=== PATIENT | male | born 1990 | race Two or more races ===

== ENCOUNTER 2018-11-03 18:21 | Emergency (ER) | payer OTHER ==
[2018-11-03] MEDS ORDERED: Sodium Chloride 0.9% 1,000 ML IV ONE ×2 (18:27→19:37)
--- NOTE | 2018-11-03 19:36 | EDM.PDOC ---
ED HPI GENERAL MEDICAL PROBLEM - General Chief Complaint: Genitourinary Problem Stated Complaint: KIDNEY PROBLEMS Time Seen by Provider: 11/03/18 18:39 Source of Information: Reports: Patient, Family (), Provider (Dr. Hart) , RN Notes Reviewed History Limitations: Reports: No Limitations - History of Present Illness INITIAL COMMENTS - FREE TEXT/NARRATIVE: I was contacted by Dr. Hart at 17:46. He was seeing the patient for lower extremity pain. The patient apparently had an intense lower extremity workout, including leg presses, squats, and hamstring curls, this past 10/30/2018. The patient tells me that he had ordinary post-workout pain on Tuesday, but that he had significantly elevated pain, particularly of the distal quadriceps, Tuesday night, 10/31/2018. At the same time, his urine turned very dark. He saw Dr. Hart about it today, although the patient tells me that he has been drinking a lot of fluid, and that his urine has since lightened up a great deal. Dr. Hart checked a CBC, CMP, CPK, and urinalysis. The patient's WBC count is elevated at 14.1, but the CBC is otherwise normal. His CMP was grossly unremarkable, including a BUN/Cr of 13/1.16. The CPK returned elevated at 9999, consistent with rhabdomyolysis (rhabdomyolysis is defined by a CPK of greater than 1500). I do not have the urinalysis results, but I was told by Dr. Hart that it was unremarkable. Dr. Hart wanted the patient to be admitted for treatment with IV fluid. No prior similar symptoms. The patient's PCP is Dr. Narvaez. Bilateral Lower Leg Pain Score (Numeric/FACES): 8 - Related Data Allergies Allergy/AdvReac Type Severity Reaction Status Date / Time No Known Allergies Allergy Verified 02/22/18 06:52 Home Meds: Home Meds buPROPion HCl [Bupropion Xl] 450 mg PO DAILY 11/03/18 [History] hydrOXYzine pamoate [Hydroxyzine Pamoate] 25 mg PO BEDTIME PRN 11/03/18 [History ] Past Medical History Respiratory History: Reports: Asthma (as a child) Psychiatric History: Reports: Depression, Other (See Below) (Insomnia) - Past Surgical History HEENT Surgical History: Reports: Adenoidectomy, Myringotomy w Tube(s) (bilateral ), Oral Surgery (wisdom teeth extraction), Tonsillectomy Musculoskeletal Surgical History: Reports: Arthroscopic Knee (right x 4, left x 1) Social & Family History - Tobacco Use Smoking Status *Q: Never Smoker Tobacco Use Within Last Twelve Months: Cigars (on occasion) - Alcohol Use Alcohol Use History: Yes Date/Time of Last Drink Comment: None since 2009 - Recreational Drug Use Recreational Drug Use: Yes Drug Use in Last 12 Months: No Recreational Drug Type: Reports: Cocaine (last snorted 2009), Ecstasy (last took 2009), Marijuana/Hashish (last smoked 2009), Psilocybin (Mushrooms) (last took 2009), Vicodin (last took 2009), Xanax (last took 2009) - Living Situation & Occupation Living situation: Reports: , with Spouse, with Family (1 son) 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 ED EXAM, GENERAL - Physical Exam Exam: See Below Exam Limited By: No Limitations General Appearance: Alert, WD/WN, No Apparent Distress Eye Exam: Bilateral Eye: EOMI, Normal Inspection Ears: Normal External Exam, Hearing Grossly Normal Nose: Normal Inspection Throat/Mouth: Normal Inspection, Normal Lips, Normal Voice, No Airway Compromise Head: Atraumatic, Normocephalic Neck: Normal Inspection, Full Range of Motion Respiratory/Chest: No Respiratory Distress, Lungs Clear, Normal Breath Sounds, No Accessory Muscle Use Cardiovascular: Normal Peripheral Pulses, Regular Rate, Rhythm, No Edema, No Gallop, No JVD, No Murmur, No Rub GI/Abdominal: Normal Bowel Sounds, Soft, Non-Tender, No Organomegaly, No Distention, No Abnormal Bruit, No Mass (Male) Exam: Deferred Rectal (Males) Exam: Deferred Back Exam: Normal Inspection, Full Range of Motion, NT Extremities: Normal Range of Motion, No Pedal Edema, Normal Capillary Refill, Other (No visible abnormality to either of the patient's distal thighs, such as swelling, erythema, ecchymosis, or abrasion. Patient reports tenderness, primarily over the distal quadriceps muscles and quadriceps tendons, bilaterally. Neurovascular status of both lower extremities is intact) Neurological: Alert, Oriented, Normal Cognition, No Motor/Sensory Deficits Psychiatric: Normal Affect Skin Exam: Warm, Dry, Intact, Normal Color, No Rash Course - Vital Signs Last Recorded V/S: Last Vital Signs Temp 36.3 C 11/03/18 18:30 Pulse 100 11/03/18 18:30 Resp 20 11/03/18 18:30 BP 143/100 H 11/03/18 18:30 Pulse Ox 95 11/03/18 18:30 - Orders/Labs/Meds Meds: Medications Discontinued Medications Generic Name Dose Route Start Last Admin Trade Name Jarrett PRN Reason Stop Dose Admin Sodium Chloride 1,000 mls @ 999 mls/hr 11/03/18 18:27 11/03/18 18:34 Normal Saline IV 11/03/18 19:27 999 mls/hr ONETIME ONE Administration Sodium Chloride 1,000 mls @ 999 mls/hr 11/03/18 19:37 11/03/18 19:37 Normal Saline IV 11/03/18 20:37 999 mls/hr ONETIME ONE Administration - Re-Assessments/Exams Free Text/Narrative Re-Assessment/Exam: 11/03/18 19:[address] Collins here in the ED. He and I agree that the patient meets criterion for rhabdomyolysis, and we both agree that the patient appears to be past the worst of it, given that his urine is getting battery stacker in color and his creatinine is within normal limits. Dr. 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 Dr. Collins recommended that instead of admitting the patient to the hospital for IV fluid, that we give him 2 L of IV fluid here, discharge him home, have him drink plenty of fluids, and have serial analysis of his creatinine. He noted that the CPK may take a long time to resolve - several days at least - and should therefore not be used to follow the course of the patient's rhabdomyolysis, so long as the patient otherwise continues to improve. This change of plans was discussed with both the patient and his , and both are in agreement. 11/03/18 19:47 The second liter of IV fluid has been started. Unfortunately, we are unable to reach Dr. Hart to notify him of the change of plans - he has gone home for the day. Departure - Departure Time of Disposition: 21:00 Disposition: Home, Self-Care 01 Condition: Fair Clinical Impression: Rhabdomyolysis - Discharge Information *PRESCRIPTION DRUG MONITORING PROGRAM REVIEWED*: Not Applicable *COPY OF PRESCRIPTION DRUG MONITORING REPORT IN PATIENT CHAVO: Not Applicable Instructions: Rhabdomyolysis Referrals: Boy Narvaez MD [Primary Care Provider] - Forms: ED Department Discharge Additional Instructions: You were seen in the emergency room in order to receive IV fluid after being diagnosed with rhabdomyolysis. You received 2 L of IV fluid in the ER. We recommend that you stay well hydrated over the next week or so. Gatorade or Powerade are best. You may take [id number] Tylenol for discomfort, but DO NOT take an NSAID, such as aspirin, ibuprofen (Motrin, Advil), or naproxen (Aleve). We recommend that you follow-up at the walk-in clinic tomorrow, Tuesday, to have your creatinine (a measure of your kidney function) rechecked. It was 1.16 today. We want to make sure that it does not go up. Your CPK (a muscle enzyme that goes up with muscle injury) does not need to be followed, so long as your pain steadily declines and your urine continues to get battery stacker in color. Follow-up with either Dr. Narvaez or Dr. Hart early this coming week. If any other problems, please do not hesitate to return to the ER.
== END 2018-11-03 20:50 | disposition home or self-care (01) ==
LOC: JD.ED 18:21
DX: T79.6XXA Traumatic ischemia of muscle, initial encounter (principal); F17.290 Nicotine dependence, other tobacco product, uncomplicated; J45.909 Unspecified asthma, uncomplicated; F32.9 Major depressive disorder, single episode, unspecified; Z79.899 Other long term (current) drug therapy
CPT/HCPCS: 96360; 96361; 99283; J7040